=== PATIENT | male | born 1970 | race Caucasian/White ===

== ENCOUNTER → 2018-01-15 | Outpatient (CLI) | payer BC, OTHER ==
--- NOTE | 2018-01-15 13:07 | RAD ---
TESTICULAR/SCROTUM: 01/15/2018 12:23 PM INDICATION: 47 years old Male. Testicular pain for 3 days. COMPARISON: None. FINDINGS: Right: Testicle: Normal in echotexture without focal lesion. Size: 3.1 x 3.7 x 2.4 cm. Flow: Normal color Doppler flow pattern. Epididymis: Normal in size and echotexture without focal lesion. Hydrocele: None. Varicocele: None. Left: Testicle: Normal in echotexture without focal lesion. Size: 3.3 x 4.0 x 2.8 cm. Flow: Normal color Doppler flow pattern. Epididymis: Normal in size and echotexture without focal lesion. Hydrocele: None. Varicocele: Small left varicocele with veins measuring 1-2 mm. IMPRESSION: Perfusion is noted to the testicles bilaterally at time of imaging. Small left varicocele. Electronically signed by: Anny Louise MD (01/15/2018 1:03 PM) [id number]
== END | disposition home or self-care (01) ==
LOC: US 12:00
PROVIDERS: ATTEND Nurse Practitioner Adult Health
DX: I86.1 Scrotal varices (principal)
CPT/HCPCS: 76870

== ENCOUNTER 2020-01-11 10:16 | Emergency (ER) | payer BC, OTHER ==
[~2020-01-11] VITALS: Ht 175.3 cm; Wt 112.7 kg
[2020-01-11 10:45] VITALS: BP 173/105
--- NOTE | 2020-01-11 10:45 | PHYS DOC ---
Adult General Chief Complaint Chief Complaint: HYPERTENSION HPI HPI Patient is a 49-year-old male who presents with elevated blood pressure reading Patient has numerous cardiac risk factors such as obesity, prediabetes, hypertension Was working this morning when he took his blood pressure via left wrist BP cuff that was grossly elevated at 200/130s Relaxed a little and brought it down but still elevated prompting him to report to our ED for evaluation Review of Systems Review of Systems Fourteen body systems of review of systems have been reviewed. See HPI for pertinent positives and negative responses, other mendosa all other systems are negative, non-pertinent or non-contributory Allergies Allergies Allergies Coded Allergies Type Severity Reaction Last Updated Verified No Known Drug Allergies 01/11/20 No Physical Exam Physical Exam Constitutional: Well developed, obese, well nourished, no acute distress, non- toxic appearance. HENT: Normocephalic, atraumatic, bilateral external ears normal, oropharynx moist, no oral exudates, nose normal. Eyes: PERRLA, EOMI, conjunctiva normal, no discharge. Neck: Normal range of motion, no tenderness, supple, no stridor. Cardiovascular:Heart rate regular, sinus rhythm, no murmurs rubs or gallops Lungs & Thorax: Bilateral breath sounds clear to auscultation Abdomen: Bowel sounds normal, soft, no tenderness, no masses, no pulsatile masses. Nonsurgical abdomen, no peritoneal signs Skin: Warm, dry, no erythema, no rash. Back: No tenderness, no CVA tenderness. Extremities: No tenderness, no cyanosis, no clubbing, ROM intact, no edema. Neurologic: Alert and oriented X 3, grossly normal motor & sensory function, no focal deficits noted. Psychologic: Affect normal, judgement normal, mood normal. Current Patient Data Vital Signs Vital Signs Date Time Temp Pulse Resp B/P (MAP) Pulse Ox O2 Delivery O2 Flow Rate FiO2 01/11/20 10:45 97.9 74 18 173/105 (127) 98 Lab Results Laboratory Tests Test 01/11/20 10:30 01/11/20 11:26 Glucose (Fingerstick) 155 mg/dL Sodium Level 138 mmol/L Potassium Level 3.9 mmol/L Chloride Level 100 mmol/L Carbon Dioxide Level 30 mmol/L Anion Gap 8 Blood Urea Nitrogen 18 mg/dL Creatinine 1.1 mg/dL Estimated GFR (Cockcroft-Gault) 71.4 Glucose Level 139 mg/dL Calcium Level 8.9 mg/dL EKG EKG [] Radiology/Procedures Radiology/Procedures [] Course & Med Decision Making Course & Med Decision Making Patient seen on ER arrival Grossly well-appearing, nontoxic, hemodynamically stable, asymptomatic hypertension on arrival Comprehensive history and physical exam obtained. Subsequent EKG and BMP ordered to evaluate cardiac and renal function in setting of asymptomatic hypertension, both non-concerning Patient evaluated in ED, BP improved without intervention, patient remained asymptomatic ED course discussed, discussed presentation for asymptomatic hypertension. Discussed importance of following up with PCP to find pain medication regiment. Discussed no indication for further work-up at this time Advised patient to call PCP and schedule in person or virtual follow-up in upcoming 1 to 7 days. Encouraged him to continue keeping blood pressure log for PCPs review at follow-up Strict return precautions discussed at length with good understanding by wai ent, all questions and concerns addressed prior to ER departure Dragon Disclaimer Dragon Disclaimer This electronic medical record was generated, in whole or in part, using a voice recognition dictation system. Departure Departure: Impression: Primary Impression: HTN (hypertension) Disposition: 01 HOME/RESIDENCE PRIOR TO ADM Condition: STABLE Referrals: LUBNA DE DIOS DO (PCP) Patient Instructions: Hypertension, Managing Your High Blood Pressure Additional Instructions: As discussed prior to ER departure, please continue to monitor your BP at least 2 or 3 times daily You have a previously scheduled outpatient follow-up visit with your primary care physician on January 16, please ensure you make it to this appointment As discussed, if your systolic blood pressure (the top number) is consistently greater than 150 over the course of the next 48 hours please contact your primary care physician to discuss need to increase your medication prior to follow-up appointment If concerning signs or symptoms such as headache, blurry vision, chest pressure or pain, extremity numbness or weakness or passing out occur, please present for emergent evaluation at your local ED It was a pleasure to take care of you today and I am thankful we did not find any emergent issues Justification of Admission: Justification of Admission: Justification of Admission Dx: N/A MANE SANTIAGO DO Jan 11, 2020 10:45
--- NOTE | 2020-01-11 11:23 | EKG ---
[address] [address] Test Date: 2020-01-11 Test Time: 11:09:22 Pat Name: ALTAF GUZMAN Department: Room: Gender: M [employer] Apprentice: PALOMO : 1970 Requested By: MANE SANTIAGO Order Number: [id number] Reading MD: Measurements Intervals [place] Rate: 60 P: 50 ME: 192 QRS: -2 QRSD: 100 T: -10 QT: 400 QTc: 400 Interpretive Statements SINUS RHYTHM LEFTWARD AXIS T ABNORMALITY IN INFERIOR LEADS ABNORMAL ECG RI6.02 No previous ECG available for comparison
[2020-01-11 11:45] LABS: CALCIUM 8.9 mg/dL (8.5-10.1); CREATININE 1.1 mg/dL (0.7-1.3); GFR 71.4; POTASSIUM 3.9 mmol/L (3.5-5.1)
== END 2020-01-11 12:04 | disposition home or self-care (01) ==
LOC: ER 10:16
DX: I10 Essential (primary) hypertension (principal); E66.9 Obesity, unspecified; Z68.36 Body mass index [BMI] 36.0-36.9, adult
CPT/HCPCS: 36415; 80048; 82947; 93005; 99284